=== PATIENT | female | born 1990 | race Caucasian/White ===

== ENCOUNTER 2017-09-24 12:20 | Emergency (ER) | payer SELFPAY ==
[2017-09-24 13:03] VITALS: BP 113/56
--- NOTE | 2017-09-24 17:52 | Emergency Department Report ---
Chief Complaint: Urogenital-Female Stated Complaint: YEAST INFECTION - HPI History of Present Illness: 27 year after [place] Citizen female comes in for thick white cottage cheese discharge with itching. Patient reports that she wore shorts that were dark colored yesterday and today she started having itching in her vaginal area. Patient denies any pelvic pain denies any abdominal pain denies any fever chills no nausea no vomiting no vaginal discharge with smell. - Exam Vital Signs: Vital Signs 09/24/17 12:49 Temperature 98.1 F Pulse Rate 59 L Respiratory 16 Rate Blood Pressure 113/56 O2 Sat by Pulse 99 Oximetry Physical Exam: Patient is evaluated by this provider. Patient stable to follow up with her [facility] or [facility] for a a yeast infection. Patient also try over- the-counter Monistat for treatment. MSE screening note: Focused history and physical exam performed. Due to findings the following was ordered: Patient is stable to be discharged for nonemergent exam. Patient follow-up with [facility] or the health department she can also try over- the-counter Monistat. ED Disposition for MSE Disposition: MED SCREENING EXAM-LEFT Condition: Stable Referrals: PRIMARY CARE, [Primary Care Provider] - 3-5 Days
== END 2017-09-24 14:57 | disposition left against medical advice (07) ==
LOC: ED 12:20
DX: B37.9 Candidiasis, unspecified (principal); Z53.21 Procedure and treatment not carried out due to patient leaving prior to being seen by health care provider